=== PATIENT | male | born 1950 | race Caucasian/White ===

== ENCOUNTER 2021-03-16 12:12 | Emergency (ER) | payer OTHER, MEDICARE ==
[~2021-03-16] VITALS: Ht 180.3 cm; Wt 102.1 kg
[2021-03-16 13:04] LABS: ABSOLUTE NEUTROPHILS 8.2 thou/uL (1.4-8.2); BASOPHILS 0.2 % (0.0-2.0); EOSINOPHILS 0.4 % (0.0-3.0); HEMATOCRIT 43.3 % (42.0-52.0); HEMOGLOBIN 14.8 gm/dL (14.0-18.0); LYMPHOCYTES 5.8 % (24.0-44.0); MCH 32.9 pg (26.0-34.0); MCHC 34.1 g/dL (28.0-37.0); MCV 96.6 fL (80.0-100.0); MONOCYTES 3.9 % (1.0-8.0); PLATELET COUNT 153 thou/uL (150-400); POLYS 89.7 % (36.0-66.0); RBC 4.48 mil/uL (4.50-6.00); RDW 13.4 % (10.5-14.5); WBC 9.1 thou/uL (4.0-11.0)
[2021-03-16 13:12] LABS: ANION GAP 9 mmol/L (7-16); BUN 24 mg/dL (7-18); CALCIUM 8.8 mg/dL (8.5-10.1); CHLORIDE 103 mmol/L (98-107); CO2 25 mmol/L (21-32); CREATININE 1.1 mg/dL (0.7-1.3); GLUCOSE 125 mg/dL (74-106); POTASSIUM 4.1 mmol/L (3.5-5.1); SODIUM 137 mmol/L (136-145)
[2021-03-16 13:22] LABS: ALBUMIN 3.7 g/dL (3.4-5.0); SGOT 29 U/L (15-37); SGPT 40 U/L (16-63); TOTAL BILIRUBIN 0.8 mg/dL (0.2-1.0); TOTAL PROTEIN 7.5 g/dL (6.4-8.2); TROPONIN-I <0.06 ng/mL (<0.06)
[2021-03-16 15:34] VITALS: BP 149/72
[2021-03-16] MEDS ORDERED: DOXYCYCLINE 10100 MG PO (15:34)
--- NOTE | 2021-03-16 15:37 | EKG ---
[address] [place] [address] [place] [address] ELECTROCARDIOGRAM REPORT Name: MENDOZA CHRIS Room #: REG [facility]#: [id number] Admission: 03/16/21 Attend Phys: Discharge: Date of : 48 Report #: [id number] [facility] ED Test Date: 2021-03-16 Test Time: 12:19:05 Pat Name: MENDOZA CHRIS Department: Room: Gender: [employer]: JCABENA : 1950 Requested By: Will Babb Order Number: [id number] MD: Ashkan Verdin Measurements Intervals [place] Rate: 98 P: 31 SC: 193 QRS: 50 QRSD: 105 T: 8 QT: 358 QTc: 458 Interpretive Statements Sinus rhythm Left atrial enlargement Minimal ST depression, anterolateral leads No previous ECG available for comparison Electronically Signed On 03-16-2021 15:37:16 CDT by Ashkan Verdin [email or web address] <ELECTRONICALLY SIGNED> By: Ashkan Verdin MD, LOCATED WITHIN [facility] 03/16/21 1537 1219 1219 Ashkan Verdin MD, FACC /EPI
== END 2021-03-16 15:34 | disposition home or self-care (01) ==
LOC: ER 12:12
PROVIDERS: Physician Assistant
DX: J70.2 Acute drug-induced interstitial lung disorders (principal); T42.6X5A Adverse effect of other antiepileptic and sedative-hypnotic drugs, initial encounter; Z20.822 Contact with and (suspected) exposure to COVID-19; R06.02 Shortness of breath; Y92.89 Other specified places as the place of occurrence of the external cause